=== PATIENT | female | born 1970 | race African-American/Black ===

== ENCOUNTER 2018-07-10 09:32 | Emergency (ER) | payer BC, OTHER ==
[2018-07-10 09:41] VITALS: BMI 38.4
[2018-07-10 11:30] LABS: BASO % 0.5 % (0-2.0); EOS % 5.3 % (0-4.5); HEMATOCRIT 38.2 % (32.4-45.2); HEMOGLOBIN 13.1 GM/dL (10.7-15.3); LYMPH % 25.7 % (8-40); MCH 27.8 pg (25.7-33.7); MCHC 34.1 g/dl (32.0-36.0); MEAN CELL VOLUME 81.4 fl (80-96); MEAN PLT VOLUME 7.4 fl (7.5-11.1); MONO % 10.3 % (3.8-10.2); NEUT % 58.2 % (42.8-82.8); PLATELET COUNT 307 K/MM3 (134-434); RDW 15.1 % (11.6-15.6); WHITE BLOOD COUNT 5.8 K/mm3 (4.0-10.0)
[2018-07-10 11:45] LABS: INR 1.08 (0.83-1.09); PROTHROMBIN TIME (PATIENT) 12.7 SEC (9.7-13.0)
--- NOTE | 2018-07-10 11:45 | PDOC ---
History of Present Illness - General Chief Complaint: Pain Stated Complaint: RT LEG SWOLLEN Time Seen by Provider: 07/10/18 10:31 History Source: Patient Exam Limitations: Clinical Condition - History of Present Illness Initial Comments: 07/10/18 11:41 Patient with no significant past medical history present with complaint of swelling to right lower extremity with intermittent chest pain and shortness of breath for 5 days. Patient reported past history of anxiety and does not know if shortness of breath and chest pain is caused by anxiety. Patient reported pain to right calf muscle. Denies shortness of breath or chest pain now. Denies sweats, nausea, vomiting. Denies numbness or tingling sensation or dizziness. 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 Denies any other symptoms Timing/Duration: other (5 days) Past History - Past Medical History Allergies/Adverse Reactions: Allergies Allergy/AdvReac Type Severity Reaction Status Date / Time No Known Allergies Allergy Verified 07/10/18 09:41 Home Medications: Ambulatory Orders Aspirin [ASA -] 81 mg PO DAILY #7 tab.chew 07/10/18 Methocarbamol [Robaxin -] 500 mg PO BID #14 tablet 07/10/18 Naproxen [Naprosyn] 500 mg PO BID 07/10/18 COPD: No - Suicide/Smoking/Psychosocial Hx Smoking History: Never smoked Information on smoking cessation initiated: No Hx Alcohol Use: No Drug/Substance Use Hx: No Review of Systems - Review of Systems Able to Perform ROS?: Yes Is the patient limited Citizen Of [place] proficient: No Constitutional: No: Chills, Fever, Weakness HEENTM: No: Symptoms Reported, See HPI, Eye Pain, Blurred Vision, Tearing, Recent change in vision, Double Vision, Cataracts, Ear Pain, Ocular Prothesis, Ear Discharge, Nose Pain, Nose Congestion, Tinnitus, Nose Bleeding, Hearing Loss , Throat Pain, Throat Swelling, Mouth Pain, Dental Problems, Difficulty Swallowing, Mouth Swelling, Other Respiratory: No: Symptoms reported, See HPI, Cough, Orthopnea, Shortness of Breath, SOB with Exertion, SOB at Rest, Stridor, Wheezing, Productive cough, Hemoptysis, Other Cardiac (ROS): Yes: Symptoms Reported, See HPI, Chest Pain (intermittent). No: Edema, Irregular Heart Rate, Lightheadedness, Palpitations, Syncope, Chest Tightness, Other ABD/GI: No: Constipated, Diarrhea, Nausea, Vomiting, Other Musculoskeletal: Yes: See HPI, Muscle Pain (right calf muscle). No: Muscle Weakness Neurological: No: Headache, Numbness, Paresthesia, Weakness, Dizziness Endocrine: No: Excessive Sweating All Other Systems: Reviewed and Negative *Physical Exam - Vital Signs Last Vital Signs Temp Pulse Resp BP Pulse Ox 98.7 F 89 19 126/64 99 07/10/18 09:39 07/10/18 09:39 07/10/18 09:39 07/10/18 09:39 07/10/18 09:39 - Physical Exam Comments: 07/10/18 11:44 GENERAL: Well developed, well nourished. Awake and alert. No acute distress. CARDIOVASCULAR: Regular rate and rhythm. No murmurs, rubs, or gallops. PULMONARY: No evidence of respiratory distress. Lungs clear to auscultation bilaterally. No wheezing, rales or rhonchi. ABDOMINAL: Soft. Non-tender. Non-distended. No rebound or guarding. No organomegaly. Normoactive bowel sounds MUSCULOSKELETAL : Mild tenderness right calf muscle in mildly obese patient with mild bilateral lower extremity swelling with right extremity more swollen than left. No bony deformities EXTREMITIES: No cyanosis. No clubbing. Mild right calf tenderness. SKIN: Warm and dry. Normal capillary refill. No rashes. No jaundice. NEUROLOGICAL: Alert, awake, appropriate. No motor deficits in the lower extremities. Gait is normal without ataxia. PSYCHIATRIC: Cooperative. Good eye contact. Appropriate mood and affect. General Appearance: Yes: Nourished, Appropriately Dressed. No: Apparent Distress Moderate Sedation - Procedure Monitoring Vital Signs: Procedure Monitoring Vital Signs Temperature 98.7 F 07/10/18 09:39 Pulse Rate 89 07/10/18 09:39 Respiratory Rate 19 07/10/18 09:39 Blood Pressure 126/64 07/10/18 09:39 O2 Sat by Pulse Oximetry (%) 99 07/10/18 09:39 ED Treatment Course - LABORATORY CBC & Chemistry Diagram: 07/10/18 11:20 07/10/18 11:20 - ADDITIONAL ORDERS Additional order review: 07/10/18 11:20 RBC 4.70 MCV 81.4 MCHC 34.1 RDW 15.1 MPV 7.4 L Neutrophils % 58.2 Lymphocytes % 25.7 Monocytes % 10.3 H Eosinophils % 5.3 H Basophils % 0.5 Medical Decision Making - Medical Decision Making 07/10/18 11:45 Patient with no significant past medical history present with complaint of intermittent shortness of breath and intermittent chest pain for 5 days with right lower extremity swelling and right calf muscle pain. Patient mildly obese with moderate bilateral lower extremity swelling with right lower extremity more swelling than left. Mild calf tenderness on the right of muscle. No increased erythema or increased warmth to lower extremity. Normal cardiac exam and lungs clear to auscultation bilateral. Patient in no acute distress. CBC, CMP and d-dimer labs ordered. Checks x-ray and right lower extremity duplex ordered. Treat based on lab and imaging results 07/10/18 13:08 CBC and CMP with no acute findings. right LE duplex negative. elevated d-dimer of 2400 which is non-specific. chest CTA ordered to r/o PE 07/10/18 21:48 chest CTA shows no PE or acute chest pathology. Patient currently asymptomatic of chest pain or SOB and low suspicion for PE given clinical exam. Small superficial phlebitis of right calf muscle. Patient advised to take aspirin and hot compress to right calf muscle for phlebitis. Strict follow-up instructions given to patient and patient advised to follow-up for repeat doppler in 1 week. Patient stable for discharge *DC/Admit/Observation/Transfer Diagnosis at time of Disposition: Leg swelling, Peripheral edema, Right ankle effusion - Discharge Dispostion Disposition: HOME Condition at time of disposition: Stable Decision to Admit order: No - Prescriptions Prescriptions: Aspirin [ASA -] 81 mg PO DAILY #7 tab.chew Methocarbamol [Robaxin -] 500 mg PO BID #14 tablet - Referrals Referrals: Wade Euceda DO [Staff Physician] - - Patient Instructions Printed Discharge Instructions: DI for Peripheral Edema, Unilateral Additional Instructions: Your labs was normal. Your ultrasound and chest cats scan shows no blood clots. swelling to right leg and ankle likely from ankle sprain. Take home aspirin daily as needed for pain and keep right leg elevated. Follow-up with referred orthopedics for follow-up with right ankle swelling. Come back to ED if chest pain, shortness or breath, dizziness, sweats . Come back to ED for repeat leg ultrasound - Post Discharge Activity
[2018-07-10 12:38] LABS: ALBUMIN 3.2 g/dl (3.4-5.0); ALK PHOS 74 U/L (45-117); ANION GAP 4 MMOL/L (8-16); BILIRUBIN,TOTAL 0.2 mg/dL (0.2-1); BLOOD UREA NITROGEN 14 mg/dL (7-18); CALCIUM 8.7 mg/dL (8.5-10.1); CHLORIDE 105 mmol/L (98-107); CO2 28 mmol/L (21-32); CREATININE 0.7 mg/dL (0.55-1.3); GLUCOSE,RANDOM 80 mg/dL (74-106); POTASSIUM 4.7 mmol/L (3.5-5.1); SGOT/AST 13 U/L (15-37); SGPT/ALT 18 U/L (13-61); SODIUM 137 mmol/L (136-145); TOT PROT 6.9 g/dl (6.4-8.2)
[2018-07-10] MEDS ORDERED: ACETAMINOPHEN 1000 MG/100 ML VIAL (NON FORMULARY) IVPB ONE (12:47)
[2018-07-10] MEDS ORDERED: ACETAMINOPHEN INJECTION 100 ML IVPB ONE (13:04)
--- NOTE | 2018-07-10 13:40 | PDOC ---
*Physical Exam - Vital Signs Last Vital Signs Temp Pulse Resp BP Pulse Ox 98.7 F 89 19 126/64 99 07/10/18 09:39 07/10/18 09:39 07/10/18 09:39 07/10/18 09:39 07/10/18 09:39 - Physical Exam Comments: 07/10/18 13:39 The patient was examined by [MAC Acosta] under my direct supervision. I personally evaluated the patient. I concur with the above findings and the plan of care. 07/10/18 16:53 48-year-old female with symptoms consistent with superficial thrombophlebitis of the right calf. Chest pains atypical and unlikely related to ACS or PE. CTA is negative. Lower extremity Doppler ultrasound is negative. Will discharge with aspirin, warm compresses, and return in 7 days for repeat ultrasound of the lower extremity. ED Treatment Course - LABORATORY CBC & Chemistry Diagram: 07/10/18 11:20 07/10/18 11:20 - ADDITIONAL ORDERS Additional order review: Laboratory Results 07/10/18 07/10/18 07/10/18 11:20 11:20 11:20 PT with INR 12.70 INR 1.08 D-Dimer 2350 H Sodium 137 Potassium 4.7 Chloride 105 Carbon Dioxide 28 Anion Gap 4 L BUN 14 Creatinine 0.7 Creat Clearance w eGFR 89.31 Random Glucose 80 Calcium 8.7 Total Bilirubin 0.2 AST 13 L ALT 18 Alkaline Phosphatase 74 Creatine Kinase 90 Troponin I < 0.02 Total Protein 6.9 Albumin 3.2 L Beta HCG, Quant < 1.0 07/10/18 11:20 RBC 4.70 MCV 81.4 MCHC 34.1 RDW 15.1 MPV 7.4 L Neutrophils % 58.2 Lymphocytes % 25.7 Monocytes % 10.3 H Eosinophils % 5.3 H Basophils % 0.5 - Medications Given in the ED: ED Medications Discontinued Medications Generic Name Dose Route Start Last Admin Trade Name Freq PRN Reason Stop Dose Admin Acetaminophen 1,000 mg 07/10/18 12:47 07/10/18 13:05 Ofirmev Injection - IVPB 07/10/18 12:48 1,000 mg ONCE ONE Administration *DC/Admit/Observation/Transfer Diagnosis at time of Disposition: Leg swelling, Peripheral edema, Right ankle effusion - Discharge Dispostion Disposition: HOME Condition at time of disposition: Stable - Referrals Referrals: Wade Euceda DO [Staff Physician] - - Patient Instructions Printed Discharge Instructions: DI for Peripheral Edema, Unilateral Additional Instructions: Your labs was normal. Your ultrasound and chest cats scan shows no blood clots. swelling to right leg and ankle likely from ankle sprain. Take home naproxen as needed for pain and keep right leg elevated. Follow-up with referred orthopedics for follow-up with right ankle swelling. Come back to ED if chest pain, shortness or breath, dizziness, sweats - Post Discharge Activity
[2018-07-10 15:46] VITALS: BP 122/91; PULSE 78; TEMP 98.5
[2018-07-10] MEDS ORDERED: KETOROLAC TROMETHAMINE 30 MG/1 ML VIAL IVPUSH ONE (16:40)
[2018-07-10] MEDS ORDERED: KETOROLAC TROMETHAMINE 30 MG/1 ML VIAL ONE (16:43)
--- NOTE | 2018-07-11 11:01 | EKG ---
Test Reason : Blood Pressure : / mmHG Vent. Rate : 063 BPM Atrial Rate : 063 BPM P-R Int : 154 ms QRS Dur : 098 ms QT Int : 416 ms P-R-T Axes : 016 038 021 degrees QTc Int : 425 ms NORMAL SINUS RHYTHM INCOMPLETE RIGHT BUNDLE BRANCH BLOCK BORDERLINE ECG NO PREVIOUS ECGS AVAILABLE Confirmed by PASQUALE KATZ, SOFÍA ([id number]) on 07/11/2018 11:00:50 AM Referred By: Confirmed By:SOFÍA GIORDANO MD
== END 2018-07-10 17:10 | disposition home or self-care (01) ==
LOC: JERFT 09:32 → SUPCPDRO 09:32 → JER 09:32
DX: S16.1XXA Strain of muscle, fascia and tendon at neck level, initial encounter (principal); F17.210 Nicotine dependence, cigarettes, uncomplicated; X58.XXXA Exposure to other specified factors, initial encounter; Y93.89 Activity, other specified; Y92.89 Other specified places as the place of occurrence of the external cause
CPT/HCPCS: 36415; 71275-TC; 80053; 82550; 84484; 84702; 85025; 85379; 85610; 93005; 93010; 93971-TC; 99283-25; J0131

== ENCOUNTER 2020-03-18 20:38 | Emergency (ER) | payer OTHER ==
[2020-03-18 20:44] VITALS: BMI 36.5
[2020-03-18] MEDS ORDERED: LACTATED RINGERS SOLUTION 1000 ML INFUS.BAG IV ONE (21:55)
[2020-03-18] MEDS ORDERED: ACETAMINOPHEN 1000 MG/100 ML VIAL (NON FORMULARY) IVPB ONE (21:56)
[2020-03-18] MEDS ORDERED: ACETAMINOPHEN INJECTION 100 ML IVPB ONE (22:03)
[2020-03-18] MEDS ORDERED: METOCLOPRAMIDE HCL INJECTION 10 MG/2 ML VIAL IVPUSH ONE (22:35)
[2020-03-18] MEDS ORDERED: METOCLOPRAMIDE HCL INJECTION 10 MG/2 ML VIAL ONE (22:57)
[2020-03-18 23:18] LABS: BASO % 0.6 % (0-2.0); EOS % 5.1 % (0-4.5); HEMATOCRIT 38.3 % (32.4-45.2); HEMOGLOBIN 12.5 GM/dL (10.7-15.3); LYMPH % 38.4 % (8-40); MCH 27.4 pg (25.7-33.7); MCHC 32.6 g/dl (32.0-36.0); MEAN CELL VOLUME 83.9 fl (80-96); MEAN PLT VOLUME 8.2 fl (7.5-11.1); MONO % 9.7 % (3.8-10.2); NEUT % 46.2 % (42.8-82.8); PLATELET COUNT 335 K/MM3 (134-434); RBC 4.56 M/mm3 (3.60-5.2); RDW 15.5 % (11.6-15.6); WHITE BLOOD COUNT 5.7 K/mm3 (4.0-10.0)
[2020-03-18 23:21] LABS: INR 1.02 (0.83-1.09); PROTHROMBIN TIME (PATIENT) 12.3 SEC (9.7-13.0)
[2020-03-18 23:23] LABS: ACTIVATED PTT 30.7 SECONDS (25.2-36.5)
[2020-03-18 23:43] LABS: POTASSIUM 4.3 mmol/L (3.5-5.1)
[2020-03-18 23:46] LABS: ALBUMIN 3.2 g/dl (3.4-5.0); BLOOD UREA NITROGEN 14.9 mg/dL (7-18); CALCIUM 8.6 mg/dL (8.5-10.1)
[2020-03-18 23:49] LABS: CREATININE 0.8 mg/dL (0.55-1.3)
[2020-03-18 23:51] LABS: BILIRUBIN,TOTAL 0.7 mg/dL (0.2-1); TOT PROT 7.2 g/dl (6.4-8.2)
[2020-03-18 23:52] LABS: EPI CELLS 22 /uL (0-25.1); HYALINE CASTS 2 /uL (0-3.1); URINE APPEARANCE CLOUDY; URINE BACTERIA 531 /uL (0-1359); URINE BILIRUBIN NEGATIVE (NEGATIVE); URINE COLOR YELLOW; URINE GLUCOSE (UA) NEGATIVE (NEGATIVE); URINE KETONE TRACE (NEGATIVE); URINE LEUK ESTERASE NEGATIVE (NEGATIVE); URINE NITRITE NEGATIVE (NEGATIVE); URINE PROTEIN TRACE (NEGATIVE); URINE RBC 179 /uL (0-23.9); URINE WBC 18 /uL (0-25.8)
[2020-03-19] MEDS ORDERED: CEFTRIAXONE 1 GM in DEXTROSE 5%-WATER - 50 ML IVPB ONE
[2020-03-19] MEDS ORDERED: CEFTRIAXONE 1 GM/50 ML BAG ONE (00:19)
[2020-03-19 00:59] VITALS: BP 120/60; PULSE 69; TEMP 98.2
== END 2020-03-19 00:58 | disposition home or self-care (01) ==
LOC: JER 20:38
PROC: 3E033NZ Introduction of Analgesics, Hypnotics, Sedatives into Peripheral Vein, Percutaneous Approach (ICD-10-PCS; principal; 2020-03-18)
PROC: 3E033GC Introduction of Other Therapeutic Substance into Peripheral Vein, Percutaneous Approach (ICD-10-PCS; 2020-03-18)
DX: R51.9 Headache, unspecified (principal); N39.0 Urinary tract infection, site not specified
CPT/HCPCS: 36415; 70450-TC; 70486-TC; 71046-TC-FY; 80053; 81003; 82728; 83605; 84484; 84703; 85025; 85610; 85730; 86140; 87040; 87086; 93005; 93010; 99285-25; J0131

== ENCOUNTER 2021-03-31 05:00 | Day surgery (SDC) | payer OTHER ==
[2021-03-29 16:22] VITALS: BMI 36.8
[2021-03-31 11:07] VITALS: BP 108/72; PULSE 62
[2021-03-31 13:17] VITALS: TEMP 96.8
== END 2021-03-31 11:25 | disposition home or self-care (01) ==
LOC: JASU-ENDO 05:00
PROVIDERS: ATTEND Internal Medicine Gastroenterology
PROC: 0DJD8ZZ Inspection of Lower Intestinal Tract, Via Natural or Artificial Opening Endoscopic (ICD-10-PCS; principal; 2021-03-31 09:30)
DX: Z12.11 Encounter for screening for malignant neoplasm of colon (principal)
CPT/HCPCS: 81025